=== PATIENT | female | born 1985 | race Caucasian/White ===

== ENCOUNTER 2016-10-22 09:44 | Emergency (ER) | payer OTHER ==
[2016-10-22 10:20] VITALS: BP 128/79
--- NOTE | 2016-10-22 10:59 | UC ---
Complaint Female HPI - HPI Summary HPI Summary: Patient presents with urinary urgency, frequency, burning upon urination. Dark colored, cloudy urine. Denies flank pain. Denies diaphoresis and chills. Denies known fever. No abnormal vaginal discharge reported. Otherwise healthy. She has had 3 UTI's over a period of 2 months. Immediately s/p abx, symptoms return. She was seen in January as well for UTI symptoms and a urine grew no pathogens. She was most recently on Bactrim. She has been consistently taking Pyridium at onset of symptoms. Today her urine remains dark and orange colored. She has never seen a urologist in the past. She states when she was , her doctor placed her on ongoing/continuous abx for frequent UTI's. - History Of Current Complaint Chief Complaint: UCGU Stated Complaint: URINARY Time Seen by Provider: 10/22/16 10:21 Hx Obtained From: Patient Hx Last Menstrual Period: "two weeks ago" ?: No Onset/Duration: Sudden Onset Timing: Constant Severity Initially: Moderate Severity Currently: Moderate Pain Intensity: 6 Pain Scale Used: 0-10 Numeric Character: Burning, Cramping Associated Signs And Symptoms: Positive: Negative Related Hx: Similar Episode/Dx as: - Risk Factors Ectopic Risk Factor: Negative Ovarian Torsion Risk Factor: Reproductive Age - Allergies/Home Medications Allergies/Adverse Reactions: Allergies Allergy/AdvReac Type Severity Reaction Status Date / Time Latex Allergy Blisters, Verified 10/22/16 10:14 Itchy, Rash Home Medications: Home Medications Chlorthalidone TAB* [Hygroton TAB*] 25 mg PO DAILY 10/22/16 [History Confirmed 10/22/16] Levothyroxine TAB* [Synthroid TAB*] 25 mcg PO DAILY 10/22/16 [History Confirmed 10/22/16] Phenazopyridine TAB* [Pyridium 100 mg TAB*] 200 mdi PO ONCE 10/22/16 [History Confirmed 10/22/16] Verapamil SR TAB* [Calan Sr TAB*] 240 mg PO DAILY 10/22/16 [History Confirmed ] PMH/Surg Hx/FS Hx/Imm Hx Previously Healthy: Yes - Surgical History Surgical History: Yes Surgery Procedure, Year, and Place: Cardiac Ablation, 2009, [facility]; [facility], 2016 2007 2004 - Social History Occupation: Employed Full-time Lives: With Family Alcohol Use: Rare Substance Use Type: None Smoking Status (MU): Former Smoker Review of Systems Constitutional: Negative Skin: Negative Respiratory: Negative Cardiovascular: Negative Gastrointestinal: Negative Genitourinary: Dysuria, Frequency, Urgency Motor: Negative Musculoskeletal: Negative Neurological: Negative Psychological: Negative All Other Systems Reviewed And Are Negative: Yes Physical Exam Triage Information Reviewed: Yes Appearance: Well-Appearing, Well-Nourished Vital Signs: Initial Vital Signs Temp 98.1 F 10/22/16 10:11 Pulse 86 10/22/16 10:11 Resp 16 10/22/16 10:11 BP 128/79 10/22/16 10:11 Pulse Ox 97 10/22/16 10:11 Vital Signs Reviewed: Yes Eye Exam: Normal Eyes: Positive: Conjunctiva Clear Neck exam: Normal Neck: Positive: Supple, Nontender, No Lymphadenopathy Respiratory Exam: Normal Respiratory: Positive: Chest non-tender, Lungs clear Cardiovascular Exam: Normal Cardiovascular: Positive: RRR Musculoskeletal Exam: Normal Musculoskeletal: Positive: Strength Intact Neurological Exam: Normal Neurological: Positive: Alert Psychological: Positive: Normal Response To Family, Age Appropriate Behavior Skin Exam: Normal Complaint Female Dx - Course Course Of Treatment: Patient experiencing urgency, frequency and pain on urination. Dark urine noted. No abnormal vaginal discharge or bleeding. No CVA tenderness bilaterally. Previous Bactrim and Augmentin use within last 5 months. Will treat for uncomplicated UTI and give Keflex, and await sensitivities of urine culture. Will call if abx not sensitive to medication. Pyridium given for comfort. Return precautions and follow up with PCP. Dr. Vaca for follow up. Explained to patient symptoms may be d/t other cause d/t frequency and she may beed to follow up with urology for further workup. Medications reviewed with patient. - Differential Dx/Diagnosis Differential Diagnosis/HQI/PQRI: Pelvic Inflammatory Disease, Sexually Transmitted Disease, Urinary Tract Infection Provider Diagnoses: UTI Discharge - Discharge Plan Condition: Stable Disposition: HOME Prescriptions: Cephalexin CAP* [Keflex CAP*] 500 mg PO BID #14 cap MDD 2 Phenazopyridine TAB* [Pyridium 100 mg TAB*] 100 mg PO TID #12 tab Patient Education Materials: Urinary Tract Infection in Women (ED) Referrals: Simon Serrato MD [Primary Care Provider] - Martinez Vaca MD [Medical Doctor] - Additional Instructions: Dx. Urinary Tract Infection Drink plenty of fluids. Supplement with cranberry or menendez juice. You may also take an over the counter cranberry supplement. If you have any questions about this, you may ask your pharmacist. If your symptoms have not improved in 1-2 days, if you develop fever, sweats or chills, please go to your emergency room, or call your PCP. Antibiotics were prescribed to you. Please take as directed. Supplement with over the counter probiotics on the opposite schedule of your antibiotic to prevent secondary infections. Do not take together as they may counteract each other. Pyridium: This medication is used to treat pain, burning, increased urination, and increased urge to urinate. These symptoms are usually caused by infection, injury, surgery, catheter, or other conditions that irritate the lower urinary tract. Pyridium will treat the symptoms of a urinary tract infection, but this medication does not treat the actual infection. Take the antibiotic that your doctor prescribes to treat your infection. Pyridium will most likely darken the color of your urine to an orange or red color. This is a normal effect and is not cause for alarm unless you have other symptoms such as pale or yellowed skin, fever, stomach pain, nausea, and vomiting. Darkened urine may also cause stains to your underwear, which may or may not be removed by laundering. It can also permanently stain soft contact lenses, and you should not wear them while taking this medicine. As discussed, please follow up with urologist as there could be something else underlying.
== END 2016-10-22 10:57 | disposition home or self-care (01) ==
LOC: UCCORT 09:44
DX: N39.0 Urinary tract infection, site not specified (principal)
CPT/HCPCS: 87077; 87086; 87186; 99212; G0463

== ENCOUNTER 2017-05-26 13:19 | Emergency (ER) | payer OTHER ==
[2017-05-26 16:22] VITALS: BP 131/51
--- NOTE | 2017-05-26 16:42 | UC ---
Throat Pain/Nasal Petey HPI - HPI Summary HPI Summary: 31 yo female with sore throat x 1 day f/c RUBY otalgia myalgias burning on urination today - History of Current Complaint Chief Complaint: UCGeneralIllness Stated Complaint: ST Time Seen by Provider: 05/26/17 16:29 Hx Obtained From: Patient Hx Last Menstrual Period: 1.5 MOS AGO Onset/Duration: Gradual Onset, Lasting Hours Severity: Severe Pain Intensity: 8 Pain Scale Used: 0-10 Numeric - Epiglottits Risk Factors Epiglottis Risk Factors: Negative - Allergies/Home Medications Allergies/Adverse Reactions: Allergies Allergy/AdvReac Type Severity Reaction Status Date / Time Adhesive Tape Allergy Blisters Verified 05/26/17 16:14 Latex Allergy Blisters, Verified 05/26/17 16:14 Itchy, Rash Home Medications: Home Medications Acetaminophen [Acetaminophen Extra Stren] 2,000 mg PO ONCE PRN 05/26/17 [ History Confirmed 05/26/17] PMH/Surg Hx/FS Hx/Imm Hx Previously Healthy: Yes Endocrine History: Diabetes Cardiovascular History: Hypertension, Other Other Cardiovascular History: tachyarrthymia - Surgical History Surgical History: Yes Surgery Procedure, Year, and Place: Cardiac Ablation, 2009, [facility]; [facility], 2016 2007 2004 - Family History Known Family History: Positive: Hypertension, Diabetes - Social History Alcohol Use: Rare Substance Use Type: None Smoking Status (MU): Former Smoker When Did the Patient Quit Smoking/Using Tobacco: 7 YRS Review of Systems Constitutional: Fever, Chills Skin: Negative Eyes: Negative ENT: Sore Throat Respiratory: Negative Cardiovascular: Negative Gastrointestinal: Negative Genitourinary: Dysuria Motor: Negative Neurovascular: Negative Musculoskeletal: Negative Neurological: Headache Psychological: Negative All Other Systems Reviewed And Are Negative: Yes Physical Exam Triage Information Reviewed: Yes Appearance: Well-Appearing, No Pain Distress, Well-Nourished Vital Signs: Initial Vital Signs Temp 100.4 F 05/26/17 16:16 Pulse 116 05/26/17 16:16 Resp 16 05/26/17 16:16 BP 131/51 05/26/17 16:16 Pulse Ox 98 05/26/17 16:16 Vital Signs Reviewed: Yes Eyes: Positive: Conjunctiva Clear ENT: Positive: Hearing grossly normal, Pharyngeal erythema, TMs normal, Tonsillar swelling, Tonsillar exudate, Uvula midline. Negative: Nasal congestion, Nasal drainage, Trismus, Muffled voice, Hoarse voice Neck: Positive: Supple, Tenderness @, Enlarged Nodes @ - ant cer Respiratory: Positive: Lungs clear, Normal breath sounds, No respiratory distress, No accessory muscle use Cardiovascular: Positive: RRR, No Murmur Musculoskeletal: Positive: No Edema Neurological: Positive: Alert Psychological Exam: Normal Skin Exam: Normal Diagnostics - Laboratory Diagnostic Studies Completed/Ordered: strep (+), udip (-) Throat Pain/Nasal Course/Dx - Differential Dx/Diagnosis Provider Diagnoses: strep throat Discharge - Discharge Plan Condition: Stable Disposition: HOME Prescriptions: Amoxicillin PO (*) [Amoxicillin 875 MG (*)] 875 mg PO BID #20 tab Prednisone 60 mg PO DAILY #6 tab Patient Education Materials: Strep Throat (DC) Referrals: Ebonie Petit PA [Primary Care Provider] - 4 Days (if not markedly improved)
[2017-05-26] MEDS ORDERED: predniSONE TAB* 20 MG PO ONE (17:04)
[2017-05-26] MEDS ORDERED: Amoxicillin PO (*) 250 MG CAP PO ONE (17:04)
[2017-05-26] MEDS ORDERED: Amoxicillin PO (*) 500 MG CAP PO ONE (17:04)
== END 2017-05-26 17:15 | disposition home or self-care (01) ==
LOC: UCCORT 13:19
DX: J02.0 Streptococcal pharyngitis (principal); Z91.040 Latex allergy status; I10 Essential (primary) hypertension; Z87.891 Personal history of nicotine dependence; E11.9 Type 2 diabetes mellitus without complications; Z79.82 Long term (current) use of aspirin
CPT/HCPCS: 81003; 87651; 99212; A9270-GY; G0463; J7512

== ENCOUNTER 2023-05-08 05:53 | Inpatient (IN) ==
[~2023-05-08 05:53] MED LIST: Naloxone 0.4 mg VIAL 0.4 mg/ml 1 ml VIAL IV PRN; Ondansetron ODT 4 mg TAB 4 MG TAB PO PRN; fentaNYL 100 mcg/2 ml 50 MCG/ML VIAL IV PRN
[2023-05-08] MEDS ORDERED: Buffered Lidocaine 1% SYRIN 1 ml INTRADERM ONE (06:00)
[2023-05-08] MEDS ORDERED: Lactated Ringers 1000 ml BAG 1,000 ML IV SCH (06:00)
[2023-05-08 06:38] LABS: Rapid COVID-19 Molecular Detected (Undetected)
[2023-05-08] MEDS ORDERED: Heparin 5000 UNITS/ML 1 mL VIAL ONE (06:57)
[2023-05-08] MEDS ORDERED: ceFAZolin *3* GM in NS PREMIX 3 GM/100 ML BAG IV ONE (06:57)
[2023-05-08] MEDS ORDERED: Ondansetron 4 mg VIAL 2 MG/ML 2 ml VIAL ONE (07:07)
[2023-05-08] MEDS ORDERED: Bupivacaine 0.5% SDV PF 30ML VIAL ONE (07:07)
[2023-05-08] MEDS ORDERED: Propofol 10 MG/ML 20 ML BTL ONE (07:07)
[2023-05-08] MEDS ORDERED: Lidocaine 1% w EPI 1:200,000 SDV 30 ML VIAL ONE (07:08)
[2023-05-08] MEDS ORDERED: Methylene Blue 1% (ANTIDOTE) 10 MG/ML 1 ML SDV VIAL IVPB ONE (07:08)
[2023-05-08] MEDS ORDERED: Rocuronium 50 mg VIAL 10 mg/ml 5 ml VIAL (50 mg) ONE (07:09)
[2023-05-08] MEDS ORDERED: Lidocaine 2% PF 5 ML VIAL ONE (07:10)
[2023-05-08] MEDS ORDERED: Midazolam 2 mg/2 ml VIAL 1 mg/ml 2 ml VIAL (2 mg) ONE (07:12)
[2023-05-08] MEDS ORDERED: fentaNYL 250 mcg/5 ml 50 MCG/ML 5 ml VIAL (250 MCG) ONE (07:13)
[2023-05-08] MEDS ORDERED: HYDROmorphone 0.5 MG/0.5 ML SYRINGE ONE (07:14)
[2023-06-12] MEDS ORDERED: fentaNYL 100 mcg/2 ml 50 MCG/ML VIAL ONE (07:19)
[2023-06-12] MEDS ORDERED: Rocuronium 50 mg VIAL 10 mg/ml 5 ml VIAL (50 mg) ONE (07:20)
[2023-06-12] MEDS ORDERED: Midazolam 2 mg/2 ml VIAL 1 mg/ml 2 ml VIAL (2 mg) ONE (07:20)
[2023-06-12] MEDS ORDERED: Propofol 10 MG/ML 20 ML BTL ONE (07:21)
[2023-06-12] MEDS ORDERED: Ondansetron 4 mg VIAL 2 MG/ML 2 ml VIAL ONE ×2 (07:21→12:11)
[2023-06-12] MEDS ORDERED: Heparin 5000 UNITS/ML 1 mL VIAL ONE (08:14)
[2023-06-12] MEDS ORDERED: ceFAZolin *3* GM in NS PREMIX 3 GM/100 ML BAG IV ONE (08:14)
[2023-06-12] MEDS ORDERED: Scopolamine 1 mg/72hr PATCH ONE (08:14)
[2023-06-12] MEDS ORDERED: Buffered Lidocaine 1% SYRIN 1 ml ONE (08:14)
[2023-06-12] MEDS ORDERED: fentaNYL 100 mcg/2 ml 50 MCG/ML VIAL IV PRN (08:22)
[2023-06-12] MEDS ORDERED: Naloxone 0.4 mg VIAL 0.4 mg/ml 1 ml VIAL IV PRN (08:22)
[2023-06-12] MEDS: Lactated Ringers 1000 ml BAG 1,000 ML IV SCH ×2 (08:41→13:26)
[2023-06-12] MEDS: Buffered Lidocaine 1% SYRIN 1 ml INTRADERM ONE (08:41)
[2023-06-12 08:55] LABS: Rapid COVID-19 Molecular Undetected (Undetected)
[2023-06-12] MEDS ORDERED: Bupivacaine 0.5% SDV PF 30ML VIAL ONE (08:55)
[2023-06-12] MEDS ORDERED: Methylene Blue 1% (ANTIDOTE) 10 MG/ML 1 ML SDV VIAL IVPB ONE (08:55)
[2023-06-12] MEDS ORDERED: Lidocaine 1% w EPI 1:200,000 SDV 30 ML VIAL ONE (08:55)
[2023-06-12] MEDS ORDERED: HYDROmorphone 0.5 MG/0.5 ML SYRINGE ONE ×2 (10:00→10:45)
[2023-06-12] MEDS ORDERED: HYDROmorphone 1 MG/1 ML SYRINGE IV SLOW PU PRN (12:15)
[2023-06-12] MEDS ORDERED: HYDROcodone/ACET. 7.5/325 LIQ 15 ML UDC PO PRN (12:15)
[2023-06-12] MEDS: Ondansetron 4 mg VIAL 2 MG/ML 2 ml VIAL IV PRN (12:15)
[2023-06-12] MEDS ORDERED: Ondansetron 4 mg VIAL 2 MG/ML 2 ml VIAL IV PRN ×2 (12:15→12:21)
[2023-06-12] MEDS ORDERED: HYDROmorphone 0.5 MG/0.5 ML SYRINGE IV SLOW PU PRN (12:15)
[2023-06-12] MEDS ORDERED: Metoclopramide 5 MG/ML VIAL (10 mg) ONE (12:19)
[2023-06-12] MEDS ORDERED: Prochlorperazine 5 mg/ml 2 ml VIAL (10 mg) IV PRN (12:21)
[2023-06-12] MEDS: Metoclopramide 5 MG/ML VIAL (10 mg) IV PRN (12:24)
[2023-06-12] MEDS ORDERED: Albuterol HFA INHALER 8 gm MDI INH PRN (12:30)
[2023-06-12] MEDS: Heparin 5000 UNITS/ML 1 mL VIAL SUBCUT SCH (13:52)
[2023-06-12] MEDS: Acetaminophen IV 1 GM/100ML 1,000 MG/100 ML BAG IV SCH (15:23)
[2023-06-12] MEDS: Famotidine IV 10 MG/ML 2 ml VIAL (20 mg) IV SLOW PU SCH (20:43)
[2023-06-13] MEDS: Levothyroxine 100 MCG/5 ML VIAL IV SCH (06:23)
[2023-06-13 10:09] VITALS: BP 140/86
[2023-06-13] MEDS ORDERED: D5W 1/2 NS KCl 20 meq 1000 ml 1,000 ML IV SCH (13:00)
== END 2023-06-13 14:50 | disposition home or self-care (01) | DRG 403 ==
LOC: AA 05:53 → EDSTATUS 05-09 12:46 → AA 06-12 07:00 → SSU 06-12 13:18
PROVIDERS: ADMIT Surgery; ATTEND Surgery

== ENCOUNTER 2024-06-02 02:49 | Observation (INO) ==
[2024-06-02 03:22] LABS: ABS Eosinophils 0.1 10^3/uL (0.0-0.5); ABS Lymphocytes 2.3 10^3/uL (1.0-4.8); ABS Monocytes 0.3 10^3/uL (0.0-0.9); ABS Neutrophils 1.5 10^3/uL (1.5-7.6); Eosinophil % 1.7 %; Hematocrit 37.9 % (35-45); Hemoglobin 12.9 g/dL (11.5-14.3); Lymphocyte % 54.9 %; Mean Corpuscular Hemoglobin 30.3 pg (27-33); Mean Corpuscular Hgb Conc 33.9 g/dL (31-36); Mean Corpuscular Volume 89.5 fL (80-97); Mean Platelet Volume 8.4 fL (7.5-11.2); Nucleated Red Blood Cells % 0.1 %/100WBC (0.0-0.8); Platelet Count 199 10^3/uL (150-450); Red Blood Count 4.24 10^6/uL (3.63-4.92); Red Cell Distribution Width 12.9 % (12-17); White Blood Count 4.1 10^3/uL (3.8-11.8)
[2024-06-02 03:42] LABS: ALT 17 U/L (7-52); AST 20 U/L (13-39); Albumin 4.1 g/dL (3.5-5.7); Albumin/Globulin Ratio 1.7 (1-3); Alkaline Phosphatase 71 U/L (35-149); Anion Gap 4 mmol/L (2-16); Blood Urea Nitrogen 14 mg/dL (6-24); C Reactive Protein 1.15 mg/L (<8.01); CO2 Carbon Dioxide 27 mmol/L (22-32); Chloride 106 mmol/L (101-111); Creatinine, Serum 0.68 mg/dL (0.51-0.95); Globulin 2.4 g/dL (2-4); Glucose 84 mg/dL (70-100); Potassium 3.9 mmol/L (3.5-5.0); Sodium 137 mmol/L (135-145); Total Bilirubin 0.5 mg/dL (0.2-1.0); Total Protein 6.5 g/dL (6.4-8.9); eGFR CKD-EPI 113.5 (>60)
[2024-06-02 03:45] LABS: INR 1.12 (0.85-1.14)
[2024-06-02] MEDS: Ondansetron 4 mg VIAL 2 MG/ML 2 ml VIAL IV ONE (06:07)
[2024-06-02] MEDS: Morphine 4 MG/ML VIAL (1 ml) IV ONE ×2 (06:07→07:37)
[2024-06-02] MEDS ORDERED: Acetaminophen IV 1 GM/100ML 1,000 MG/100 ML BAG IV PRN (09:12)
[2024-06-02] MEDS ORDERED: Ondansetron 4 mg VIAL 2 MG/ML 2 ml VIAL IV PRN (09:13)
[2024-06-02] MEDS ORDERED: Albuterol HFA INHALER 8 gm MDI INH PRN (09:14)
[2024-06-02 09:35] LABS: HCG Pregnancy < 0.60 mIU/mL
[2024-06-02] MEDS ORDERED: Midazolam 2 mg/2 ml VIAL 1 mg/ml 2 ml VIAL (2 mg) ONE ×2 (09:46→14:00)
[2024-06-02] MEDS ORDERED: Dexamethasone IV 4 MG/ML VIAL 1 ml VIAL ONE ×2 (09:46→14:04)
[2024-06-02] MEDS ORDERED: Ondansetron 4 mg VIAL 2 MG/ML 2 ml VIAL ONE ×3 (09:46→16:05)
[2024-06-02] MEDS ORDERED: fentaNYL 250 mcg/5 ml 50 MCG/ML 5 ml VIAL (250 MCG) ONE (09:46)
[2024-06-02] MEDS ORDERED: Rocuronium 50 mg VIAL 10 mg/ml 5 ml VIAL (50 mg) ONE (09:46)
[2024-06-02] MEDS ORDERED: Lidocaine 2% PF 5 ML VIAL ONE (09:46)
[2024-06-02] MEDS ORDERED: Propofol 10 MG/ML 20 ML BTL ONE ×2 (09:46→14:04)
[2024-06-02] MEDS ORDERED: Acetaminophen IV 1 GM/100ML 1,000 MG/100 ML BAG IV ONE (09:51)
[2024-06-02] MEDS ORDERED: HYDROmorphone 1 MG/1 ML SYRINGE IV PRN (09:51)
[2024-06-02] MEDS ORDERED: Naloxone 0.4 mg VIAL 0.4 mg/ml 1 ml VIAL IV PRN (09:51)
[2024-06-02] MEDS ORDERED: fentaNYL 100 mcg/2 ml 50 MCG/ML VIAL IV PRN (09:51)
[2024-06-02] MEDS ORDERED: Bupivacaine 0.25% EPI 200,000 30 ML SDV ONE (09:53)
[2024-06-02] MEDS ORDERED: Pantoprazole VIAL 40 MG VIAL IV SCH (10:00)
[2024-06-02] MEDS ORDERED: Lactated Ringers 1000 ml BAG 1,000 ML IV SCH (10:00)
[2024-06-02] MEDS ORDERED: Scopolamine 1 mg/72hr PATCH ONE (10:37)
[2024-06-02] MEDS ORDERED: Morphine 4 MG/ML VIAL (1 ml) ONE ×2 (10:38→13:10)
[2024-06-02] MEDS: Buffered Lidocaine 1% SYRIN 1 ml INTRADERM ONE (10:40)
[2024-06-02] MEDS: Lactated Ringers 1000 ml BAG 1,000 ML IV SCH (10:40)
[2024-06-02] MEDS: Scopolamine 1 mg/72hr PATCH TRANSDERM ONE (10:40)
[2024-06-02] MEDS ORDERED: fentaNYL 100 mcg/2 ml 50 MCG/ML VIAL ONE (14:00)
[2024-06-02] MEDS ORDERED: Succinylcholine 200 mg VIAL 20 mg/ml 10 ml VIAL (200 mg) ONE (14:04)
[2024-06-02] MEDS ORDERED: Bupivacaine 0.25% w/EPI 10 ML SDV ONE (14:11)
[2024-06-02] MEDS: Ondansetron 4 mg VIAL 2 MG/ML 2 ml VIAL IV PRN (16:05)
[2024-06-02 18:19] VITALS: BP 139/80
== END 2024-06-02 18:10 | disposition home or self-care (01) ==
LOC: EDHOLD 02:49 → ED 02:49 → AA 09:40
PROVIDERS: ADMIT Surgery; ATTEND Surgery